=== PATIENT | male | born 1960 | race Caucasian/White ===

== ENCOUNTER 2021-04-05 05:11 | Emergency (ER) | payer MEDICAID ==
[~2021-04-05] VITALS: Ht 188 cm; Wt 97.7 kg
[2021-04-05] MEDS ORDERED: ALBUTEROL/IPRATROPIUM 2.5MG/0.5MG, 3 ML ONE (05:53)
[2021-04-05] MEDS ORDERED: FAMOTIDINE 20 MG/2 ML ONE (05:53)
[2021-04-05] MEDS ORDERED: SODIUM CHLORIDE FLUSH 10ML SYR IVF ONE (06:00)
[2021-04-05] MEDS ORDERED: FAMOTIDINE 20 MG/2 ML IVPush ONE (06:00)
[2021-04-05] MEDS ORDERED: ALBUTEROL/IPRATROPIUM 2.5MG/0.5MG, 3 ML NPPB ONE (06:00)
[2021-04-05] MEDS ORDERED: SODIUM CHLORIDE 0.9% 1,000ML IVBOLUS ONE (06:00)
[2021-04-05 06:37] LABS: BASOPHILS % (AUTO) 1 % (0-1); EOSINOPHILS % (AUTO) 1 % (1-7); LYMPHOCYTES % (AUTO) 21 % (22-44); MEAN CORPUSCULAR HGB CONC 33.4 g/dL (33.2-36.2); MEAN PLATELET VOLUME 8.9 fL (7.4-10.4); MONOCYTES % (AUTO) 7 % (2-9); NEUTROPHILS % (AUTO) 70 % (42-75); PLATELET COUNT 162 x10^3/uL (130-400); RED BLOOD COUNT 4.36 x10^6/uL (4.38-5.82); RED CELL DISTRIBUTION WIDTH 16.6 % (9.4-14.8)
[2021-04-05 06:55] LABS: ALANINE AMINOTRANSFERASE 44 U/L (12-78); ANION GAP 10 mmol/L (5-15); CALCIUM 8.5 mg/dL (8.5-10.1); CHLORIDE 107 mmol/L (98-107)
[2021-04-05 07:00] LABS: ALKALINE PHOSPHATASE 114 U/L (45-117); BILIRUBIN,TOTAL 1.7 mg/dL (0.2-1.0); TOTAL PROTEIN 6.6 g/dL (6.4-8.2); TROPONIN I < 0.015 ng/mL (0.000-0.045)
--- NOTE | 2021-04-05 07:00 | NUR ---
REPORT FROM EVIE RN WITH ASSESSMENT PATIENT REMAIN WITH REPORTED SHORTNESS OF BREATH:MINIMAL WOB, POX 95, HOWEVER-WITH WET/DEMINISHED BREATH SOUNDS
[2021-04-05] MEDS ORDERED: FUROSEMIDE 20 MG/2 ML IV ONE (07:30)
--- NOTE | 2021-04-05 07:35 | NUR ---
PLACED ON 3L NC FOR POX IN THE 80'S WITH DEEP REST
--- NOTE | 2021-04-05 07:52 | NUR ---
AMBULATORY TO & FROM [facility] W/OUT INCIDENT; GAIT STEADY; VOIDED SPECIMEN PROVIDED.
[2021-04-05 08:10] LABS: MICROSCOPIC NOT IND
[2021-04-05] MEDS ORDERED: FUROSEMIDE 20 MG/2 ML ONE (08:29)
--- NOTE | 2021-04-05 09:17 | NUR ---
PATIENT VOIDED 750ML, PROVIDED WITH BREAKFAST (ATE BANANA/FRESH FRUIT TO REPLETE HYPERKALEMIA) ERP TO BEDSIDE-PLAN TO D/C
[2021-04-05] MEDS ORDERED: ACETAMINOPHEN 500 MG TABLET PO ONE (09:30)
[2021-04-05 09:52] VITALS: BP 94/64
== END 2021-04-05 09:55 | disposition home or self-care (01) ==
LOC: ED 05:41
DX: K29.20 Alcoholic gastritis without bleeding (principal); F10.10 Alcohol abuse, uncomplicated; R10.84 Generalized abdominal pain; I50.1 Left ventricular failure, unspecified; R00.0 Tachycardia, unspecified; Z87.891 Personal history of nicotine dependence; Y90.0 Blood alcohol level of less than 20 mg/100 ml
CPT/HCPCS: 36415; 74022; 80053; 81003; 83690; 83880; 84484; 85025; 93005; 94640; 96361; 96374; 96375; 99285; J1940; J7030